=== PATIENT | male | born 1950 | race Caucasian/White ===

== ENCOUNTER 2022-04-04 12:22 | Outpatient (CLI) | payer MEDICARE, OTHER, SELFPAY ==
--- NOTE | 2022-04-04 13:00 | CRLHL7_ITS ---
For Patients: As a result of the Century Cures Act, medical imaging exams and procedure reports are released immediately into your electronic medical record. You may view this report before your referring provider. If you have questions, please contact your health care provider. INDICATION : Nasal lymphoma. Surveillance. TECHNIQUE : CT Scan of the chest abdomen and pelvis. Nonionic contrast 98 cc. IV contrast. COMPARISON : CT scan of the chest abdomen and pelvis 10/15/2021. FINDINGS: Chest: Perifissural nodule left lower lobe image 59. Additional left lower lobe perifissural nodule image 49. No thoracic axillary hilar or mediastinal adenopathy. Stable 1.4 cm left thyroid exophytic nodule. Normal heart size. No pericardial effusion. Abdomen: Stable low dense lesion likely hepatic cyst segment 7. No pathologic enlargement of the mesentery or retroperitoneal lymph nodes. Contracted gallbladder with stones. Spleen size normal. Pancreas and adrenal glands are unremarkable. No hydronephrosis or renal mass lesions. GI tract is unremarkable. Pelvis: No pathologic lymph node enlargement or free fluid the urinary bladder is unremarkable. Enlarged prostate. Changes of vasectomy with surgical clips in both scrotal regions. Skeletal: No suspicious lesions. IMPRESSION: 1. No significant change. 2. No pathologically enlarged lymph nodes in the chest abdomen or pelvis. 3. Stable small perifissural lung nodules continued follow up can be obtained. 4. Stable 1.4 cm exophytic left thyroid nodule. Please note that all CT scans at this facility use dose modulation, iterative reconstruction, and/or weight-based dosing when appropriate to reduce radiation dose to as low as reasonably achievable. Dictated by Patrick Terrazas MD @ 04/07/2022 9:28:25 PM (Electronically Signed)
[2022-04-04 13:08] LABS: Creatinine* 0.9 mg/dL (0.5-1.5); Estimated Glomerular Filt Rate 92 ml/min
[2022-04-05 09:54] LABS: Basophils Absolute Auto 0.03 K/uL (0.00-0.30); Basophils Percent Auto 0.7 % (0.0-3.0); Eosinophils Absolute Auto 0.02 K/uL (0.00-0.50); Eosinophils Percent Auto 0.4 % (0.0-7.0); Hematocrit 42.1 % (37.0-53.0); Hemoglobin* 14.1 gm/dL (13.5-17.5); Lymphocytes Absolute Auto 0.97 K/uL (0.90-2.90); Lymphocytes Percent Auto 21.5 % (20-44); Mean Corpuscular HGB Conc 34 gm/dL (32-36); Mean Corpuscular Hemoglobin 32 pg (26-34); Mean Corpuscular Volume 96 fL (80-100); Monocytes Percent Auto 11.1 % (0.0-11.0); Neutrophils Absolute Auto 2.99 K/uL (1.7-7.0); Neutrophils Percent Auto 66.3 % (42.0-72.0); Platelet Count* 177 K/uL (140-440); RDW Coefficient of Variation % 12.1 % (11.5-15.5); Red Blood Count 4.37 m/uL (4.30-5.90); White Blood Count* 4.51 K/uL (4.50-11.00)
[2022-04-05 10:14] LABS: Albumin* 4.4 g/dL (3.3-5.0); Chloride* 100 mmol/L (96-114); Potassium* 4.3 mmol/L (3.6-5.1); Sodium* 135 mmol/L (135-149)
[2022-04-05 10:16] LABS: Carbon Dioxide* 29 mmol/L (20-32); Creatinine* 0.9 mg/dL (0.5-1.5); Estimated Glomerular Filt Rate 92 ml/min
[2022-04-05 10:17] LABS: Alanine Aminotransferase* 27 U/L (4-50); Alkaline Phosphatase* 43 U/L (40-150); Aspartate Amino Transferase* 31 U/L (12-35); Bilirubin Total* 0.6 mg/dL (0.1-1.5); Blood Urea Nitrogen* 17 mg/dL (7-30); Calcium* 9.3 mg/dL (8.4-10.6); Glucose* 93 mg/dL (60-115); Lactate Dehydrogenase* 211 U/L (120-246); Total Protein* 6.9 g/dL (6.0-8.3)
[2022-04-05 10:18] LABS: Slide Review Reflex No
== END 2022-04-04 12:23 | disposition home or self-care (01) ==
LOC: CT 12:27
PROVIDERS: Visit Provider Nurse Practitioner Family
DX: C44.320 Squamous cell carcinoma of skin of unspecified parts of face (principal); C82.90 Follicular lymphoma, unspecified, unspecified site; C09.9 Malignant neoplasm of tonsil, unspecified; R91.8 Other nonspecific abnormal finding of lung field; E04.1 Nontoxic single thyroid nodule
CPT/HCPCS: 36415; 71260; 74177; 80053; 82565; 83615; 84443; 85025; Q9967

== ENCOUNTER 2022-11-11 12:13 | Outpatient (CLI) | payer MEDICARE, OTHER, SELFPAY ==
--- NOTE | 2022-11-11 13:00 | CRLHL7_ITS ---
For Patients: As a result of the Century Cures Act, medical imaging exams and procedure reports are released immediately into your electronic medical record. You may view this report before your referring provider. If you have questions, please contact your health care provider. INDICATION: Follow up Follicular Lymphoma TECHNIQUE: Contrast-enhanced CT of the chest, abdomen and pelvis. 81 cc of Isovue 370 IV COMPARISON: 04/04/2022 FINDINGS: Chest: Thyroid: Unremarkable Airways: The central airways are patent. No bronchiectasis. Lungs: Mild biapical reticulation pleural/parenchymal scarring. No suspicious/new or enlarging nodules. Heart/Pericardium: Unremarkable. Vascular structures: Mild ascending aortic ectasia measuring 3.8 cm stable. Inadequate opacification of the pulmonary arteries. Pleural spaces: No pneumothorax or pleural effusion. Lymph Nodes: No significant axillary, mediastinal, or hilar lymphadenopathy. Abdomen/Pelvis: Liver: Non-cirrhotic morphology. No suspicious lesion. Right hepatic lobe cyst. Patent portal and hepatic veins. Gallbladder: Unremarkable. Spleen: Normal in size. Adrenal glands: Unremarkable. Kidneys: No hydronephrosis. Symmetric enhancement. Pancreas: Unremarkable. Lymph nodes: No retroperitoneal, mesenteric, inguinal, or pelvic adenopathy by CT criteria. Bowel: No bowel obstruction. Urinary bladder: Limited evaluation due to underdistention. No gross pathology. Reproductive structures: Mild to moderate prostate enlargement. Vascular structures: Mild atherosclerotic disease. No AAA. The visceral vessels are patent. Peritoneum: No abdominal/pelvis ascites or free intraperitoneal air. MSK: No aggressive appearing osseous lesion. IMPRESSION: No CT evidence of active disease in the chest, abdomen, or pelvis. Please note that all CT scans at this facility use dose modulation, iterative reconstruction, and/or weight-based dosing when appropriate to reduce radiation dose to as low as reasonably achievable. Dictated by Romaine Louis MD @ 11/13/2022 5:46:39 PM (Electronically Signed)
--- NOTE | 2022-11-11 13:30 | CRLHL7_ITS ---
For Patients: As a result of the Century Cures Act, medical imaging exams and procedure reports are released immediately into your electronic medical record. You may view this report before your referring provider. If you have questions, please contact your health care provider. INDICATION: Follicular lymphoma. Comparison 10/15/2021. TECHNIQUE: CT soft tissue neck with IV contrast. IC view 370, 81 cc. FINDINGS: Normal bilateral parotid glands. Atrophic right submandibular glands. Normal thyroid gland. Stable postop changes of left neck dissection. Compared to the previous exam, stable mildly enlarged lymph node at level 2 on the right immediately posterior to the angle of the mandible measuring approximately 16 mm in diameter (best seen on series 2, image 40). Otherwise, no enlarged lymph nodes in the remainder of the neck. No supraclavicular superior mediastinal adenopathy. Nasopharynx and oropharynx are clear. No inflammation within the parapharyngeal fat pads or retropharyngeal space. Normal thickness of the epiglottis. Normal glottis with symmetric vocal cords. Lung apices are clear. Normal alignment of cervical spine. Mild cervical spondylosis. No prevertebral soft tissue swelling. Visualized paranasal sinuses and mastoid air cells are clear. IMPRESSION: 1. No interval change. 2. Stable postop changes left neck dissection. 3. Compared to previous exam, there remains a mildly enlarged right level 2 lymph node posterior to the angle of the mandible. 4. No new adenopathy elsewhere. 5. Normal deep soft tissues of the neck Please note that all CT scans at this facility use dose modulation, iterative reconstruction, and/or weight-based dosing when appropriate to reduce radiation dose to as low as reasonably achievable. Dictated by Fuentes Beckford MD @ 11/12/2022 10:13:14 AM (Electronically Signed)
== END 2022-11-11 12:14 | disposition home or self-care (01) ==
PROVIDERS: PCP Family Medicine; Visit Provider Internal Medicine Medical Oncology
DX: C82.90 Follicular lymphoma, unspecified, unspecified site (principal)
CPT/HCPCS: 36415; 70491; 71260; 74177; 80053; 85025; Q9967

== ENCOUNTER 2022-11-14 14:37 | Outpatient (RCR) | payer MEDICARE, OTHER, SELFPAY ==
[2022-11-11 12:28] LABS: Basophils Percent Auto 0.2 % (0.0-3.0); Eosinophils Percent Auto 0.2 % (0.0-7.0); Hematocrit 41.1 % (37.0-53.0); Hemoglobin* 13.7 gm/dL (13.5-17.5); Lymphocytes Percent Auto 18.4 % (20-44); Mean Corpuscular HGB Conc 33 gm/dL (32-36); Mean Corpuscular Hemoglobin 32 pg (26-34); Mean Corpuscular Volume 95 fL (80-100); Monocytes Percent Auto 11.7 % (0.0-11.0); Neutrophils Percent Auto 69.5 % (42.0-72.0); Platelet Count* 195 K/uL (140-440); RDW Coefficient of Variation % 12.2 % (11.5-15.5); Red Blood Count 4.32 m/uL (4.30-5.90); White Blood Count* 4.19 K/uL (4.50-11.00)
[2022-11-11 12:38] LABS: Slide Review Reflex No
[2022-11-11 13:09] LABS: Albumin* 4.2 g/dL (3.3-5.0); Chloride* 97 mmol/L (96-114); Potassium* 4.2 mmol/L (3.6-5.1); Sodium* 134 mmol/L (135-149)
[2022-11-11 13:11] LABS: Bilirubin Total* 0.6 mg/dL (0.1-1.5); Carbon Dioxide* 30 mmol/L (20-32); Creatinine* 0.9 mg/dL (0.5-1.5); Estimated Glomerular Filt Rate 92 ml/min
[2022-11-11 13:12] LABS: Alanine Aminotransferase* 25 U/L (4-50); Alkaline Phosphatase* 36 U/L (40-150); Aspartate Amino Transferase* 28 U/L (12-35); Blood Urea Nitrogen* 19 mg/dL (7-30); Glucose* 92 mg/dL (60-115); Total Protein* 6.8 g/dL (6.0-8.3)
[2022-11-11 13:13] LABS: Calcium* 9.4 mg/dL (8.4-10.6)
== END 2023-05-10 23:59 | disposition home or self-care (01) ==
LOC: CCIC 14:37
PROVIDERS: Internal Medicine Medical Oncology; PCP Family Medicine; Referring Provider Family Medicine; Visit Provider Internal Medicine Hematology & Oncology
DX: C82.90 Follicular lymphoma, unspecified, unspecified site (principal); C30.0 Malignant neoplasm of nasal cavity; C43.9 Malignant melanoma of skin, unspecified
CPT/HCPCS: 36415; 80053; 85025; 99212; 99213

== ENCOUNTER 2024-01-01 07:43 | Outpatient (RCR) | payer MEDICARE, OTHER, SELFPAY ==
[2024-01-01 07:58] LABS: Basophils Absolute Auto 0.02 K/uL (0.00-0.30); Basophils Percent Auto 0.4 % (0.0-3.0); Eosinophils Absolute Auto 0.03 K/uL (0.00-0.50); Eosinophils Percent Auto 0.6 % (0.0-7.0); Hematocrit 43.1 % (37.0-53.0); Hemoglobin* 14.5 gm/dL (13.5-17.5); Immature Granulocytes Abs Auto 0.01 K/uL (0.00-0.30); Immature Granulocytes Pct Auto 0.2 %; Lymphocytes Percent Auto 15.8 % (20-44); Mean Corpuscular HGB Conc 34 gm/dL (32-36); Mean Corpuscular Hemoglobin 32 pg (26-34); Mean Corpuscular Volume 95 fL (80-100); Monocytes Percent Auto 10.4 % (0.0-11.0); Neutrophils Percent Auto 72.6 % (42.0-72.0); Platelet Count* 186 K/uL (140-440); RDW Coefficient of Variation % 12.1 % (11.5-15.5); Red Blood Count 4.52 m/uL (4.30-5.90); White Blood Count* 5.01 K/uL (4.50-11.00)
[2024-01-01 08:00] LABS: Slide Review Reflex No
[2024-01-01 08:12] LABS: Albumin* 4.5 g/dL (3.3-5.0); Chloride* 99 mmol/L (96-114); Potassium* 4.1 mmol/L (3.6-5.1); Sodium* 135 mmol/L (135-149)
[2024-01-01 08:14] LABS: Estimated Glomerular Filt Rate 80 ml/min
[2024-01-01 08:15] LABS: Alanine Aminotransferase* 27 U/L (4-50); Alkaline Phosphatase* 44 U/L (40-150); Anion Gap 7 mEq/L (7-15); Aspartate Amino Transferase* 31 U/L (12-35); Bilirubin Total* 0.7 mg/dL (0.1-1.5); Blood Urea Nitrogen* 19 mg/dL (7-30); Calcium* 9.6 mg/dL (8.4-10.6); Carbon Dioxide* 29 mmol/L (20-32); Glucose* 91 mg/dL (60-115); Lactate Dehydrogenase* 178 U/L (120-246); Total Protein* 7.1 g/dL (6.0-8.3)
== END 2024-06-29 23:59 | disposition home or self-care (01) ==
LOC: CCIC 07:43
PROVIDERS: Clinical Nurse Specialist; PCP Family Medicine; Referring Provider Family Medicine; Visit Provider Internal Medicine Hematology & Oncology
DX: C82.90 Follicular lymphoma, unspecified, unspecified site (principal)
CPT/HCPCS: 36415; 80053; 83615; 85025; 99212; 99213; G0463